=== PATIENT | female | born 1990 | race Caucasian/White ===

== ENCOUNTER → 2016-09-17 | Outpatient (CLI) | payer BC ==
[~2016-09-17] MED LIST: AMPH10TA2 PO; ETONMIS VAGRING; HYDR-5688 PO; IBUP-1050 PO; IBUP-1451 PO; LACT10CA3 PO; LORA-741 PO; MULT-506 PO; OREGCAP PO
--- NOTE | 2016-09-17 15:46 | DIAGNOSTIC IMAGING REPORT ---
CHEST 2 VIEWS ROUTINE HISTORY: Left-sided CHEST PAIN COMPARISON: Chest 02/27/2015. FINDINGS: The lungs are clear. Cardiac silhouette is normal in size. No pleural effusions. No pneumothorax. IMPRESSION: No acute process. Electronically signed by: Ulices Mcguire M.D. 09/17/2016 3:44 PM Dictated Date/Time: 09/17/2016 3:43 PM
== END | disposition home or self-care (01) ==
LOC: C.CPL 13:37
DX: R07.9 Chest pain, unspecified (principal)

== ENCOUNTER → 2016-09-17 | Outpatient (CLI) | payer BC ==
[~2016-09-17] MED LIST changes: +OPTIRAY 320 IV PRN
--- NOTE | 2016-09-17 18:03 | DIAGNOSTIC IMAGING REPORT ---
CHEST CTA for PULMONARY ARTERIES CT DOSE: 180.17 mGy.cm HISTORY: Chest pain. Dyspnea. CHEST PAIN, R/O PE TECHNIQUE: Multiaxial CT images of the chest were performed following the intravenous administration of contrast to evaluate the pulmonary arteries. Maximal intensity projection images were also obtained. COMPARISON STUDY: 08/27/2012 FINDINGS: There is a normal caliber thoracic aorta with no evidence for dissection. There is no evidence for pulmonary embolus. No pleural effusions. No pneumothorax. The liver and spleen are unremarkable. No mediastinal or hilar lymphadenopathy. The central airways are patent. The lungs are clear. IMPRESSION: No evidence for pulmonary embolus. Electronically signed by: Loi Champion M.D. 09/17/2016 6:01 PM Dictated Date/Time: 09/17/2016 5:56 PM
== END | disposition home or self-care (01) ==
LOC: C.CTS 17:36
DX: R07.1 Chest pain on breathing (principal); R79.1 Abnormal coagulation profile

== ENCOUNTER → 2016-09-25 | Outpatient (CLI) | payer BC ==
[~2016-09-25] MED LIST changes: -OPTIRAY 320 IV PRN
--- NOTE | 2016-09-25 08:47 | DIAGNOSTIC IMAGING REPORT ---
LUMBAR SPINE MRI HISTORY: Pelvic pain PELVIC NEURALGIA TECHNIQUE: Multiplanar multisequence MRI of the lumbar spine was performed without the use of contrast. COMPARISON: None. FINDINGS: For the purpose of the report the L5-S1 disc space will be located on axial image 27 of 30. Significant degenerative disc change L4-L5. Posterior disc herniation based on the sagittal images. L1-L2: No significant central canal or neural foraminal narrowing. L2-L3: No significant central canal or neural foraminal narrowing. L3-L4: No significant central canal or neural foraminal narrowing. L4-L5: Right posterior disc herniation L4-L5. Considerable posterior displacement of the anterior central aspect of the thecal sac. Moderate narrowing of the right neuroforamina. L5-S1: No significant central canal or neural foraminal narrowing. IMPRESSION: 1. Right central posterior disc herniation L4-L5. 2. Considerable deformity of the right central anterior aspect of the thecal sac with moderate narrowing right neural foramina. Electronically signed by: Loi Champion M.D. 09/25/2016 8:45 AM Dictated Date/Time: 09/25/2016 8:43 AM
== END | disposition home or self-care (01) ==
LOC: C.MRI 07:39
DX: R10.2 Pelvic and perineal pain (principal); M51.26 Other intervertebral disc displacement, lumbar region

== ENCOUNTER → 2016-10-04 | Outpatient (CLI) | payer BC | END | disposition home or self-care (01) | LOC: C.LABSPEC 13:50 | PROVIDERS: ATTEND Obstetrics & Gynecology | DX: N76.0 Acute vaginitis (principal) ==

== ENCOUNTER → 2017-01-23 | Day surgery (SDC) | payer BC ==
[2017-01-15 09:12] VITALS: Ht 162.6 cm; Wt 54.5 kg
[~2017-01-23] VITALS: Ht 162.6 cm; Wt 54.5 kg
[~2017-01-23] MED LIST changes: -ETONMIS VAGRING
== END | disposition home or self-care (01) ==
LOC: C.PAT 12:46 → EDSTATUS 16:00
PROVIDERS: ATTEND Physical Medicine & Rehabilitation
DX: M51.26 Other intervertebral disc displacement, lumbar region (principal); Z53.9 Procedure and treatment not carried out, unspecified reason

== ENCOUNTER → 2017-01-31 | Outpatient (CLI) | payer BC ==
[2017-01-31 13:24] LABS: PREG INTERNAL NEGATIVE QC NEG CLEAR BACKGROUND; PREG INTERNAL POSITIVE QC POS CONTROL LINE
[2017-01-31 13:27] LABS: URINE APPEARANCE CLEAR (CLEAR); URINE BILIRUBIN NEG (NEG); URINE COLOR YELLOW; URINE NITRITE NEG (NEG); URINE SPECIFIC GRAVITY 1.015 (1.000-1.030); UROBILINOGEN NEG (NEG)
[2017-01-31 13:39] LABS: MANUAL MICROSCOPIC REQUIRED? NO; REVIEW REQ? NO
[2017-02-02 03:02] LABS: CHLAMYDIA TRACH RNA*** NOT DETECTED (NOT DETECTED); GC (NEIS GONORRHOEAE)RNA** NOT DETECTED (NOT DETECTED)
== END | disposition home or self-care (01) ==
LOC: C.LABSPEC 11:11
PROVIDERS: ATTEND Obstetrics & Gynecology
DX: R39.15 Urgency of urination (principal); N76.0 Acute vaginitis; N92.6 Irregular menstruation, unspecified